=== PATIENT | male | born 1975 | race Caucasian/White ===

== ENCOUNTER 2020-12-15 11:55 | Outpatient (CLI) | payer BC, SELFPAY ==
[2020-12-15 12:34] LABS: Add Urine Microscopic? NO; Appearance Urine Clear (Clear); Bilirubin Urine Negative (Negative); Blood Urine Negative (Negative); Color Urine Yellow (Yellow); Glucose Urine UA Negative (Negative); Ketones Urine Negative (Negative); Leukocyte Esterase Ur Negative LEU/UL (Negative); Nitrate Urine Negative (Negative); Protein Urine Negative (Negative); Specific Grav Ur 1.021 (1.001-1.035); Urobilinogen Urine Negative mg/dL (<2.0)
[2020-12-15 12:36] LABS: Basophils Absolute Auto 0.1 K/mm3 (0.0-0.1); Basophils Percent Auto 1.5 % (0.2-1.2); Eosinophils Absolute Auto 0.2 K/mm3 (0-0.3); Eosinophils Percent Auto 6.2 % (0-4.4); Hematocrit 42.2 % (42.0-52.0); Hemoglobin 14.8 g/dL (14.0-18.0); Immature Granulocyte Absolute 0.01 K/mm3 (0.00-0.031); Immature Granulocyte Percent A 0.3 % (0-0.5); Lymphocytes Absolute Auto 1.66 K/mm3 (0.9-3.2); Lymphocytes Percent Auto 42.7 % (18.3-44.2); Mean Corpuscular HGB Conc 35.1 g/dl (32-36); Mean Corpuscular Hemoglobin 35.5 pg (26-34); Mean Corpuscular Volume 101.2 fl (80-100); Mean Platelet Volume 8.8 fl (7.4-10.4); Monocytes Absolute Auto 0.4 K/mm3 (0.1-0.6); Monocytes Percent Auto 11.1 % (2.6-8.5); Neutrophils Absolute Auto 1.5 K/mm3 (1.3-6.7); Neutrophils Percent Auto 38.2 % (45.5-73.1); Platelet Count Result 264 k/mm3 (150-375); Red Blood Count 4.17 M/mm3 (4.6-6.20); Red Cell Distribution Width 11.6 % (11.5-14.5); White Blood Count 3.9 K/mm3 (4.5-10.0)
[2020-12-15 13:54] LABS: LDL Cholesterol Direct 81 mg/dL
[2020-12-15 13:55] LABS: Alanine Aminotransferase 29 U/L (4-50); Albumin Level 4.8 g/dL (3.5-5.1); Alkaline Phosphatase 47 U/L (38-126); Anion Gap 9 mmol/L (8-16); Aspartate Amino Transferase 43 U/L (17-59); Bilirubin,Total 0.5 mg/dL (0.2-1.3); Blood Urea Nitrogen 12 mg/dL (9-20); Calcium 9.3 mg/dL (8.4-10.2); Carbon Dioxide 30 mmol/L (22-30); Chloride 103 mmol/L (98-107); Cholesterol 207 mg/dL (0-200); Estimated Glomerular Filt Rate > 60; Glucose 83 mg/dL (75-110); HDL Direct 99 mg/dL; Magnesium 1.9 mg/dL (1.6-2.3); Potassium 4.3 mmol/L (3.4-5.0); Sodium 142 mmol/L (137-145); Triglycerides 135 mg/dL (<150)
[2020-12-15 14:14] LABS: Prostate Specific Antigen 2.7 ng/mL (< OR = 4.0)
[2020-12-15 14:49] LABS: Folic Acid 3.6 ng/mL (2.76->20)
[2020-12-15 16:05] LABS: Vitamin D 25 Hydroxy 39.5 ng/mL
[2020-12-15 16:19] LABS: Thyroid Stimulating Hormone Reflex 0.895 uIU/mL (0.465-4.68)
== END 2020-12-15 11:56 | disposition home or self-care (01) ==
PROVIDERS: PCP Family Medicine; Visit Provider Family Medicine
DX: M13.0 Polyarthritis, unspecified (principal); F10.20 Alcohol dependence, uncomplicated; Z13.9 Encounter for screening, unspecified
CPT/HCPCS: 36415; 80053; 80061; 81003; 82306; 82607; 82746; 83036; 83735; 84153; 84443; 85025; 86038

== ENCOUNTER 2025-02-12 12:07 | Emergency (ER) | payer OTHER, SELFPAY ==
[2025-02-12 12:15] VITALS: BP 125/97; PULSE 85; RESP 16; TEMP 36.6; O2SAT 99
[2025-02-12 12:36] VITALS: RESP 17; O2SAT 100
[2025-02-12] MEDS: ONDANSETRON INJ 4 MG/2 ML VIAL IV PUSH (13:15)
[2025-02-12] MEDS: SODIUM CHLORIDE 0.9% IV 1,000 ML 999 ML IV CONT (13:15)
[2025-02-12 13:19] VITALS: BP 120/90; PULSE 73; RESP 19; O2SAT 100
[2025-02-12 13:24] LABS: Hematocrit 43.0 % (42.0-52.0); Hemoglobin 15.4 g/dL (14.0-18.0); Immature Granulocyte Percent A 0.2 % (0-0.5); Lymphocytes Absolute Auto 1.38 K/mm3 (0.9-3.2); Mean Corpuscular HGB Conc 35.8 g/dl (32-36); Mean Corpuscular Hemoglobin 37.1 pg (26-34); Mean Corpuscular Volume 103.6 fl (80-100); Nucleated Red Blood Cells Absolute Auto 0.000 K/mm3 (0.0-0.012); Nucleated Red Blood Cells Perc 0.0 % (0.0-0.2); Platelet Count Result 258 k/mm3 (150-375); Red Blood Count 4.15 M/mm3 (4.6-6.20); White Blood Count 5.2 K/mm3 (4.5-10.0)
[2025-02-12 13:35] LABS: Alanine Aminotransferase 142 U/L (6-50); Albumin Level 4.8 g/dL (3.5-5.1); Alkaline Phosphatase 57 U/L (38-126); Anion Gap 13 mmol/L (4-12); Aspartate Amino Transferase 171 U/L (17-59); Bilirubin,Total 0.8 mg/dL (0.2-1.3); Blood Urea Nitrogen 8 mg/dL (9-20); Calcium 9.7 mg/dL (8.4-10.2); Carbon Dioxide 22 mmol/L (22-30); Chloride 100 mmol/L (98-107); Estimated CRCL calculation 103 ml/min; Estimated Glomerular Filt Rate > 60; Glucose 104 mg/dL (65-110); Lipase 122 U/L (23-300); Potassium 4.3 mmol/L (3.4-5.0); Sodium 135 mmol/L (137-145); Total Protein 8.1 g/dL (6.3-8.2)
[2025-02-12 13:39] LABS: INR 1.0; Prothrombin Time 12.8 Seconds (11.1-14.7)
[2025-02-12 13:41] LABS: Partial Thromboplastin Time 28.5 Seconds (22.3-36.8)
[2025-02-12 15:46] VITALS: BP 133/102; PULSE 79; RESP 20; O2SAT 100
--- NOTE | 2025-02-12 15:47 | ED_ITS ---
HPI - General Adult General Chief complaint: Unspecified Stated complaint: vomiting blood, tremors Time Seen by Provider: 02/12/25 13:02 History of Present Illness HPI narrative: LPatient is a 49-year-old male who presents ER with multiple complaints. First complaint is blood in stool and emesis. His occurred a couple times the last 2 weeks. Most notably 5 days ago. It is streak to mixed in with the stool and emesis. Vomiting blood occurs after frequent retching. He reports he drinks wine 5 days a week due to having a stressful job. He also reports from [facility] a tremor in orders for panel from [facility] on line. He does not have a primary care physician. He has no abdominal pain at this time. No fevers or chills or sweats. He is not on any blood thinning medications. No syncope. Related Data Allergies Allergy/AdvReac Type Severity Reaction Status Date / Time amoxicillin Allergy Intermediate Hives Verified 02/12/25 12:44 Review of Systems 2 Review of Systems: All systems reviewed & are unremarkable except as noted in HPI and below Constitutional: Constitutional: Reports no additional constitutional complaints ENT: Reports system reviewed and no additional complaints, except as documented Cardiovascular: Cardiovascular: Reports no additional cardiovascular complaints Respiratory: Respiratory: Reports no additional respiratory complaints Gastrointestinal: Gastrointestinal: Reports no additional gastrointestinal complaints PMFSH Past Medical History Medical History (Updated 02/12/25 @ 15:52 by Inocencio Cote MD) Essential tremor Surgical History Surgical History (Updated 02/12/25 @ 15:49 by Inocencio Cote MD) No pertinent past surgical history Exam 2 Narrative: GENERAL: Well-appearing, well-nourished, and in no acute distress. HEAD: Normocephalic, atraumatic. ENT: Mucous membranes moist. CHEST: Clear to auscultation. No respiratory distress. HEART: Regular rate and rhythm. Normal peripheral pulses. ABDOMEN: Soft, nontender, nondistended. EXTREMITIES: Normal range of motion. No edema. SKIN: Warm, dry, no rash. NEURO: Alert and oriented x3. PSYCH: Normal mood and affect. Course Course Emergency Course: Unremarkable physical exam. Labs with elevated transaminases. Recommend discontinuing alcohol intake. Patient also with elevated alcohol level. Clinically sober this time. Vital Signs Vital signs: Vital Signs Temperature 97.8 F 02/12/25 12:15 Pulse Rate 85 02/12/25 12:15 Respiratory Rate 16 02/12/25 12:15 Blood Pressure 125/97 H 02/12/25 12:15 Pulse Oximetry 99 02/12/25 12:15 Oxygen Delivery Room Air 02/12/25 12:15 Temperature 97.8 F 02/12/25 12:15 Pulse Rate 79 02/12/25 15:46 Respiratory Rate 20 02/12/25 15:46 Blood Pressure 133/102 H 02/12/25 15:46 Pulse Oximetry 100 02/12/25 15:46 Oxygen Delivery Room Air 02/12/25 12:15 Medical Decision Making Vital Signs Vital Signs: Vital Signs Temperature 97.8 F 02/12/25 12:15 Pulse Rate 85 02/12/25 12:15 Respiratory Rate 16 02/12/25 12:15 Blood Pressure 125/97 H 02/12/25 12:15 Pulse Oximetry 99 02/12/25 12:15 Oxygen Delivery Room Air 02/12/25 12:15 Temperature 97.8 F 02/12/25 12:15 Pulse Rate 79 02/12/25 15:46 Respiratory Rate 20 02/12/25 15:46 Blood Pressure 133/102 H 02/12/25 15:46 Pulse Oximetry 100 02/12/25 15:46 Oxygen Delivery Room Air 02/12/25 12:15 Lab Data 02/12/25 13:16 02/12/25 13:16 Labs: Lab Results 02/12/25 Range/Units 13:16 WBC 5.2 (4.5-10.0) K/mm3 RBC 4.15 L (4.6-6.20) M/mm3 Hgb 15.4 (14.0-18.0) g/dL Hct 43.0 (42.0-52.0) % MCV 103.6 H (80-100) fl MCH 37.1 H (26-34) pg MCHC 35.8 (32-36) g/dl RDW 11.9 (11.5-14.5) % Plt Count 258 (150-375) k/mm3 MPV 8.8 (7.4-10.4) fl Immature Gran % (Auto) 0.2 (0-0.5) % Neut % (Auto) 50.7 (45.5-73.1) % Lymph % (Auto) 26.4 (18.3-44.2) % Laurens % (Auto) 16.6 H (2.6-8.5) % Eos % (Auto) 4.8 H (0-4.4) % Baso % (Auto) 1.3 H (0.2-1.2) % Lymph # (Auto) 1.38 (0.9-3.2) K/mm3 Laurens # (Auto) 0.9 H (0.1-0.6) K/mm3 Eos # (Auto) 0.3 (0-0.3) K/mm3 Baso # (Auto) 0.1 (0.0-0.1) K/mm3 Abs Immat Gran (auto) 0.01 (0.00-0.031) K/mm3 Absolute Neuts (auto) 2.7 (1.3-6.7) K/mm3 Absolute Nucleated RBC 0.000 (0.0-0.012) K/mm3 Nucleated RBC % 0.0 (0.0-0.2) % PT 12.8 (11.1-14.7) Seconds INR 1.0 APTT 28.5 (22.3-36.8) Seconds Sodium 135 L (137-145) mmol/L Potassium 4.3 (3.4-5.0) mmol/L Chloride 100 (98-107) mmol/L Carbon Dioxide 22 (22-30) mmol/L Anion Gap 13 H (4-12) mmol/L BUN 8 L (9-20) mg/dL Creatinine 0.73 (0.7-1.3) mg/dL Estim Creat Clear Calc 103 ml/min Estimated GFR > 60 (59 - ) Glucose 104 (65-110) mg/dL Calcium 9.7 (8.4-10.2) mg/dL Total Bilirubin 0.8 (0.2-1.3) mg/dL AST 171 H (17-59) U/L ALT 142 H (6-50) U/L Alkaline Phosphatase 57 (38-126) U/L Total Protein 8.1 (6.3-8.2) g/dL Albumin 4.8 (3.5-5.1) g/dL Lipase 122 (23-300) U/L Ethyl Alcohol 155 (<10) mg/dL Discharge Plan Discharge Clinical Impression: Transaminitis Patient Disposition: Home Condition: Stable Instructions: Transaminitis (ED) Additional Instructions: Follow-up with primary care doctor for further treatment and evaluation. Stop drinking alcohol to help improve your liver enzymes. Patient Language: Tajik Follow-up/Referrals: Olayinka,MD Yusef [Primary Care Provider, Unknown] - 1 Week
== END 2025-02-12 16:10 | disposition home or self-care (01) ==
PROVIDERS: Emergency Provider Emergency Medicine; PCP Family Medicine
DX: R74.01 Elevation of levels of liver transaminase levels (principal); G25.0 Essential tremor
CPT/HCPCS: 36415; 80053; 82077; 83690; 85025; 85610; 85730; 96361; 96374; 99284; J2405; J7030